=== PATIENT | female | born 1955 | race Caucasian/White ===

== ENCOUNTER 2021-05-18 17:01 | Emergency (ER) | payer MEDICARE ==
[~2021-05-18] VITALS: Ht 170.2 cm; Wt 68.0 kg
[2021-05-18] MEDS ORDERED: ONDANSETRON HCL INJ 2MG/ML 2ML 2 MG/ML VIAL IV STA (17:22)
[2021-05-18] MEDS ORDERED: SODIUM CHLORIDE 0.9% 1000ML 1,000 ML IV STA (17:22)
[2021-05-18] MEDS ORDERED: MORPHINE SULFATE INJ 4 MG/ML INJ 1ML IV STA (17:22)
[2021-05-18] MEDS ORDERED: PENICILLIN G BENZATHINE LA 1.2 MU TBX IM STA (18:06)
[2021-05-18] MEDS ORDERED: IBUPROFEN 600 MG TAB PO STA (18:12)
[2021-05-18] MEDS ORDERED: IBUPROFEN 600 MG TAB ONE (18:30)
[2021-05-18] MEDS ORDERED: ONDANSETRON HCL INJ 2MG/ML 2ML 2 MG/ML VIAL ONE (18:30)
[2021-05-18] MEDS ORDERED: MORPHINE SULFATE INJ 4 MG/ML INJ 1ML ONE (18:31)
[2021-05-18] MEDS ORDERED: SODIUM CHLORIDE 0.9% 1000ML 1,000 ML ONE (18:31)
[2021-05-18] MEDS ORDERED: PENICILLIN G BENZATHINE LA 1.2 MU TBX ONE (19:03)
[2021-05-18] MEDS ORDERED: PREDNISONE20 MG PO (19:21)
[2021-05-18] MEDS ORDERED: AZITHROMYCIN250 MG PO (19:21)
[2021-05-18] MEDS ORDERED: VENTOLIN HFA18 GM INH (19:21)
[2021-05-18] MEDS ORDERED: TUSSIN COU15 MG/5 M1 PO (19:21)
[2021-05-18 19:43] VITALS: BP 108/61
== END 2021-05-18 19:44 | disposition home or self-care (01) ==
LOC: FSED 17:25
DX: J02.0 Streptococcal pharyngitis (principal); J18.9 Pneumonia, unspecified organism; Z20.822 Contact with and (suspected) exposure to COVID-19
CPT/HCPCS: 71046; 80048; 81003; 83518; 84484; 85025; 87400; 93005; 99284; J0561; J2270; J2405; J7030; U0002

== ENCOUNTER → 2022-03-06 | Day surgery (SDC) | payer MEDICARE ==
[2022-03-03 09:42] LABS: BASOPHILS % 0.4 % (0.0-1.0); EOSINOPHILS % 1.5 % (0.0-6.0); HEMATOCRIT 39.4 % (34.2-44.1); HEMOGLOBIN 13.3 g/dL (12.0-16.0); LYMPHOCYTES % 37.2 % (18.0-39.1); MEAN CORPUSCULAR HGB CONC 33.8 g/dL (31-35); MEAN CORPUSCULAR VOLUME 94.9 fL (81-99); MONOCYTES # (AUTO) 0.3 (0.2-0.8); NEUTROPHILS # (AUTO) 1.3 (2.1-6.9); NEUTROPHILS % 47.9 % (38.7-80.0); PLATELET COUNT 192 x10e3/uL (140-360); RED BLOOD COUNT 4.15 x10e6/uL (3.6-5.1); RED CELL DISTRIBUTION WIDTH 12.8 % (11.7-14.4)
[~2022-03-06] MED LIST: AZITHROMYCIN250 MG PO; FENTANYL CITRATE/PF 100MCG/2 ML INJ ONE; LIDOCAINE HCL 2% LOCAL INJ 5 ML SDV VIAL INJ ONE; METOCLOPRAMIDE HCL 10 MG/2ML VIAL ONE; MIDAZOLAM HCL 2 MG/2 ML VIAL ONE; ONDANSETRON HCL INJ 2MG/ML 2ML 2 MG/ML VIAL ONE; POVIDONE IODINE 0.05% 0.05 % ML PO ONE; PREDNISONE20 MG PO; PROPOFOL IV EMULSION 10 MG/ML 20 ML VIAL ONE; TUSSIN COU15 MG/5 M1 PO; VENTOLIN HFA18 GM INH
[2022-03-06 15:10] VITALS: BP 114/81
== END | disposition home or self-care (01) ==
LOC: OR 12:15
PROVIDERS: ATTEND Internal Medicine Gastroenterology
DX: K29.70 Gastritis, unspecified, without bleeding (principal); D12.4 Benign neoplasm of descending colon; K20.90 Esophagitis, unspecified without bleeding; K22.89 Other specified disease of esophagus; K57.30 Diverticulosis of large intestine without perforation or abscess without bleeding; K64.8 Other hemorrhoids; Z71.3 Dietary counseling and surveillance; Z01.810 Encounter for preprocedural cardiovascular examination; Z01.812 Encounter for preprocedural laboratory examination; Z20.822 Contact with and (suspected) exposure to COVID-19; Z68.25 Body mass index [BMI] 25.0-25.9, adult; Z80.0 Family history of malignant neoplasm of digestive organs
CPT/HCPCS: 36415; 43239; 45380; 85025; 88305; 88312; 93005; C9113; J2001; J2405; J2704; J2765; U0002; 45378; J2250; J3010